=== PATIENT | female | born 1965 | race Caucasian/White ===

== ENCOUNTER → 2017-04-08 | Outpatient (CLI) | payer OTHER | END | disposition home or self-care (01) | LOC: CFH 07:01 | PROVIDERS: ATTEND Family Medicine | DX: N28.89 Other specified disorders of kidney and ureter (principal) | CPT/HCPCS: 76700 ==

== ENCOUNTER → 2017-04-17 | Outpatient (CLI) | payer OTHER | END | disposition home or self-care (01) | LOC: RAD 07:38 → EDSTATUS 08:00 | PROVIDERS: ATTEND Family Medicine | DX: Z02.9 Encounter for administrative examinations, unspecified (principal) | CPT/HCPCS: 74160 ==

== ENCOUNTER → 2017-05-19 | Outpatient (CLI) | payer OTHER ==
[~2017-05-19] MED LIST: CHOL2000 PO; FISHOIL PO; MELO15TA24 PO; MULT1TAB60 PO; UBID100C24 PO; [UNRECOGNIZED DRUG - OTHER] PO
[2017-05-19 08:54] LABS: HEMATOCRIT 42.5 % (34.6-47.8); HEMOGLOBIN 13.9 g/dL (11.7-16.4); WHITE BLOOD COUNT 9.4 x10^3/uL (3.4-10)
[2017-05-19 09:03] LABS: BLOOD UREA NITROGEN 10 mg/dL (7-18)
== END | disposition home or self-care (01) ==
LOC: STAR 07:47
PROVIDERS: ATTEND Obstetrics & Gynecology Female Pelvic Medicine and Reconstructive Surgery
DX: Z01.818 Encounter for other preprocedural examination (principal); D25.9 Leiomyoma of uterus, unspecified; N92.0 Excessive and frequent menstruation with regular cycle; N93.9 Abnormal uterine and vaginal bleeding, unspecified
CPT/HCPCS: 36415; 71020; 80048; 85025; 93005

== ENCOUNTER 2017-06-02 11:07 | Day surgery (SDC) | payer OTHER ==
[~2017-06-02] VITALS: Ht 172.7 cm; Wt 107.0 kg
[~2017-06-02 11:07] MED LIST changes: +BUPIVACAINE/PF 0.25% ONE; +EPINEPHRINE 1 MG/ML, 1ML ONE; +FLUORESCEIN SODIUM 500 MG/5 ML ONE
[2017-06-02] MEDS ORDERED: LACTATED RINGERS 1,000 ML IV SCH ×2 (11:14→13:27)
[2017-06-02 11:22] VITALS: BP 130/84
[2017-06-02] MEDS ORDERED: ACET-1600 PO (11:25)
[2017-06-02] MEDS ORDERED: SCOPOLAMINE PATCH, 1MG PATCH.TD72 TD ONE (11:30)
[2017-06-02] MEDS ORDERED: ACETAMINOPHEN 500 MG TABLET PO ONE (11:30)
[2017-06-02 11:32] LABS: HCG UR LOT HCG7030192
[2017-06-02 11:38] LABS: HCG UR OBC PASS
[2017-06-02] MEDS ORDERED: FENTANYL PF 100 MCG/2ML ONE ×2 (11:48→13:38)
[2017-06-02] MEDS ORDERED: SUCCINYLCHOLINE 20 MG/ML, 10ML ONE (11:49)
[2017-06-02] MEDS ORDERED: ONDANSETRON 2MG/ML, 2ML ONE ×2 (11:49→13:38)
[2017-06-02] MEDS ORDERED: DEXAMETHASONE 4 MG/ML, 1ML ONE (11:49)
[2017-06-02] MEDS ORDERED: ROCURONIUM 10MG/ML,5ML ONE (11:49)
[2017-06-02] MEDS ORDERED: METOCLOPRAMIDE 5 MG/ML, 2ML ONE (11:49)
[2017-06-02] MEDS ORDERED: PROPOFOL 10 MG/ML, 50ML ONE (11:49)
[2017-06-02] MEDS ORDERED: GLYCOPYRROLATE 0.4 MG/2 ML, 2ML ONE (11:49)
[2017-06-02] MEDS ORDERED: ESMOLOL 100 MG/10 ML ONE (11:49)
[2017-06-02] MEDS ORDERED: PROPOFOL 10 MG/ML, 20ML ONE (11:49)
[2017-06-02] MEDS ORDERED: CEFAZOLIN 1,000 MG ONE (11:49)
[2017-06-02] MEDS ORDERED: KETOROLAC 30 MG/1 ML ONE (11:49)
[2017-06-02] MEDS ORDERED: LIDOCAINE-MPF 2% ,5ML ONE (11:49)
[2017-06-02] MEDS ORDERED: NEOSTIGMINE 1 MG/ML, 10ML ONE (11:49)
[2017-06-02] MEDS ORDERED: ONDANSETRON 2MG/ML, 2ML IVPush PRN ×2 (12:30→13:30)
[2017-06-02] MEDS ORDERED: MEPERIDINE/PF 25MG/0.5ML IVPush PRN (12:30)
[2017-06-02] MEDS ORDERED: OXYcodone 5 MG/5 ML ORAL.SOL UDC PO PRN (12:30)
[2017-06-02] MEDS ORDERED: MIDAZOLAM 1 MG/ML, 2ML IV PRN (12:30)
[2017-06-02] MEDS ORDERED: hydrALAzine 20 MG/ML, 1ML IV PRN (12:30)
[2017-06-02] MEDS ORDERED: PROMETHAZINE 25 MG/ML, 1ML IV PRN (12:30)
[2017-06-02] MEDS ORDERED: LABETALOL 5MG/ML, 20ML IV PRN (12:30)
[2017-06-02] MEDS ORDERED: IBUPROFEN 600 MG TABLET PO PRN (13:30)
[2017-06-02] MEDS ORDERED: PROMETHAZINE 25 MG SUPP PR ONE (13:30)
[2017-06-02] MEDS ORDERED: OXYcodone/APAP 5/325MG TABLET PO PRN (13:30)
[2017-06-02] MEDS ORDERED: LACTATED RINGERS 500 ML IVBOLUS ONE (13:30)
[2017-06-02] MEDS ORDERED: OXYcodone 5 MG/5 ML ORAL.SOL UDC ONE (13:39)
[2017-06-02] MEDS ORDERED: HYDROmorphone 1 MG/ML, 1ML ONE (13:39)
[2017-06-02] MEDS: FENTANYL PF 100 MCG/2ML IV PRN ×2 (13:44→14:00)
[2017-06-02] MEDS: HYDROmorphone 1 MG/ML, 1ML IV PRN ×3 (14:10→14:30)
== END 2017-06-02 17:10 | disposition home or self-care (01) ==
LOC: OUT 11:07
PROVIDERS: ATTEND Obstetrics & Gynecology Female Pelvic Medicine and Reconstructive Surgery
DX: N92.5 Other specified irregular menstruation (principal); N80.0 Endometriosis of uterus; D25.9 Leiomyoma of uterus, unspecified; E28.2 Polycystic ovarian syndrome; E66.01 Morbid (severe) obesity due to excess calories; Z68.35 Body mass index [BMI] 35.0-35.9, adult
CPT/HCPCS: 58552; 81025; 88307; J0171; J0330; J0690; J1100; J1170; J1885; J2405; J2704; J2710; J2765; J3010; J3490; J7120; S2900

== ENCOUNTER → 2018-09-28 | Outpatient (CLI) | payer OTHER ==
[~2018-09-28] MED LIST changes: +ACET-1600 PO; -BUPIVACAINE/PF 0.25% ONE; -EPINEPHRINE 1 MG/ML, 1ML ONE; -FLUORESCEIN SODIUM 500 MG/5 ML ONE
== END | disposition home or self-care (01) ==
LOC: CFH 07:02
PROVIDERS: ATTEND Family Medicine
DX: E04.2 Nontoxic multinodular goiter (principal); R94.6 Abnormal results of thyroid function studies
CPT/HCPCS: 76536